=== PATIENT | male | born 1945 | race Caucasian/White ===

== ENCOUNTER 2018-11-10 14:52 | Outpatient (CLI) | payer OTHER | END 2018-11-10 15:05 | disposition home or self-care (01) | LOC: RAD 14:52 | DX: I37.2 Nonrheumatic pulmonary valve stenosis with insufficiency (principal); M16.11 Unilateral primary osteoarthritis, right hip; M25.551 Pain in right hip; M17.12 Unilateral primary osteoarthritis, left knee; M25.562 Pain in left knee ==